=== PATIENT | female | born 1965 | race Caucasian/White ===

== ENCOUNTER → 2016-12-16 | Outpatient (CLI) | payer OTHER ==
--- NOTE | 2016-12-16 17:02 | MG ---
Examination: Bilateral screening mammogram. Clinical history: Routine screening. Technique: Digital CC and MLO views of both breasts were obtained. Implant displaced views of both b reasts were also obtained. Computer aided detection analysis was performed and used during the inter pretation. Comparison: 07/19/2014. Findings: The breasts are heterogeneously dense, reducing the sensitivity of mammography. Bilateral saline pro stheses are normal in appearance. Benign-appearing calcifications are noted in the breasts bilateral ly. Scattered densities are present in the right breast, which are partially obscured by surrounding fib roglandular tissue, but appear new when compared with the prior examination. Additional imaging eval uation is recommended, with spot compression magnification views in the CC and MLO projections, a la teral view of the right breast and a right breast ultrasound. No suspicious mass, area of architectural distortion or suspicious cluster of microcalcifications is noted in the left breast. Impression: 1. Densities in the right breast, as described above. BI-RADS category 0 (ZERO) - ASSESSMENT INCOMPLETE; ADDITIONAL IMAGING IS NEEDED. Recommend immediate recall for additional imaging evaluation, as described above. Diagnostic CAD was utilized and reviewed. * 0 (ZERO) - ASSESSMENT INCOMPLETE; ADDITIONAL IMAGING IS NEEDED. * 0C - ASSESSMENT INCOMPLETE, NEEDS ADDITIONAL IMAGING EVALUATION AND/OR PRIOR MAMMOGRAMS FOR COMPAR ALEAH. * 1/1 (ONE) - NEGATIVE. * 2/II (TWO) - BENIGN FINDINGS. * 3/III (THREE) - PROBABLY BENIGN FINDING; SHORT INTERVAL FOLLOW-UP SUGGESTED. * 4/IV (FOUR) - SUSPICIOUS ABNORMALITY; BIOPSY SHOULD BE CONSIDERED. * 5/V - HIGHLY SUSPICIOUS OF MALIGNANCY; BIOPSY SHOULD BE PERFORMED. * 6/IV - KNOWN BIOPSY PROVEN MALIGNANCY-APPROPRIATE ACTION SHOULD BE TAKEN. A NEGATIVE X-RAY REPORT SHOULD NOT DELAY BIOPSY IF A DOMINANT OR CLINICALLY SUSPICIOUS MASS IS PRESENT; 4 TO 8 PERCENT OF CANCERS ARE NOT IDENTIFIED BY X-RAY. A NEGATIVE REPORT MAY REINFORCE THE CLINICAL IMPRESSION. ADENOSIS AND DENSE BREASTS MAY OBSCURE AN UNDERLYING NEOPLASM. Reported By:
== END ==
LOC: RAD 14:47
PROVIDERS: ATTEND Nurse Practitioner
DX: Z12.31 Encounter for screening mammogram for malignant neoplasm of breast (principal)
CPT/HCPCS: 77067

== ENCOUNTER → 2017-01-01 | Outpatient (CLI) | payer OTHER ==
--- NOTE | 2017-01-01 15:14 | MG ---
HISTORY: Abnormal screening mammography with right breast nodules Right breast digital diagnostic mammography with CAD and right breast ultrasound. Comparison: Multiple priors dating back to July 08, 2011 FINDINGS: Mammogram: CC spot magnification and ML views of the right breast were obtained. Heterogeneously de nse fibroglandular tissue is seen to be present. No dominant suspicious architectural distortion, m ass or clustered microcalcifications can be observed to suggest malignancy. The previously describe d nodules become less prominent and assuming a similar appearance as compared to the more remote sanjay ors but which will be correlated with ultrasound to exclude an underlying suspicious occult lesion. Benign-appearing calcifications are noted. Ultrasound: Multiple grayscale and color Doppler images of the right breast were obtained from 9-6 o 'clock. There are numerous horizontally oriented smoothly marginated and well circumscribed predomin antly anechoic cyst with posterior acoustical enhancement and no internal Doppler flow all of which measure less than 1 cm with the largest lesion at 10 o'clock and which demonstrate a small amount of internal debris and septations but no suspicious peripheral solid nodular components. A background of fibrocystic changes are noted. No suspicious solid nodules are identified. IMPRESSION: NO RADIOGRAPHIC EVIDENCE OF MALIGNANCY. ACR CATEGORY 2 - benign findings. FOLLOW-UP EXAM 1 YEAR. Diagnostic CAD was utilized and reviewed. * 0 (ZERO) - ASSESSMENT INCOMPLETE; ADDITIONAL IMAGING IS NEEDED. * 1/1 (ONE) - NEGATIVE. * 2/II (TWO) - BENIGN FINDINGS. * 3/III (THREE) - PROBABLY BENIGN FINDING; SHORT INTERVAL FOLLOW-UP SUGGESTED. * 4/IV (FOUR) - SUSPICIOUS ABNORMALITY; BIOPSY SHOULD BE CONSIDERED. * 5/V (FIVE) - HIGHLY SUSPICIOUS OF MALIGNANCY; BIOPSY SHOULD BE PERFORMED. A NEGATIVE X-RAY REPORT SHOULD NOT DELAY BIOPSY IF A DOMINANT OR CLINICALLY SUSPICIOUS MASS IS PRESENT; 4 TO 8 PERCENT OF CANCERS ARE NOT IDENTIFIED BY X-RAY. A NEG ATIVE REPORT MAY REINFORCE THE CLINICAL IMPRESSION. ADENOSIS AND DENSE BREASTS MAY OBSCURE AN UNDER LYING NEOPLASM. Reported By:
--- NOTE | 2017-01-01 15:20 | US ---
HISTORY: Abnormal screening mammography with right breast nodules Right breast digital diagnostic mammography with CAD and right breast ultrasound. Comparison: Multiple priors dating back to July 08, 2011 FINDINGS: Mammogram: CC spot magnification and ML views of the right breast were obtained. Heterogeneously dense fibroglandular tissue is seen to be present. No dominant suspicious architectural distortion, mass or clustered microcalcifications can be observed to suggest malignancy. The previously described nodules become less prominent and assuming a similar appearance as compared to the more remote priors but which will be correlated with ultrasound to exclude an underlying suspicious occult lesion. Benign-appearing calcifications are noted. Ultrasound: Multiple grayscale and color Doppler images of the right breast were obtained from 9-6 o'clock. There are numerous horizontally oriented smoothly marginated and well circumscribed predominantly anechoic cyst with posterior acoustical enhancement and no internal Doppler flow all of which measure less than 1 cm with the largest lesion at 10 o'clock and which demonstrate a small amount of internal debris and septations but no suspicious peripheral solid nodular components. A background of fibrocystic changes are noted. No suspicious solid nodules are identified. IMPRESSION: NO RADIOGRAPHIC EVIDENCE OF MALIGNANCY. ACR CATEGORY 2 - benign findings. FOLLOW-UP EXAM 1 YEAR. Diagnostic CAD was utilized and reviewed. * 0 (ZERO) - ASSESSMENT INCOMPLETE; ADDITIONAL IMAGING IS NEEDED. * 1/1 (ONE) - NEGATIVE. * 2/II (TWO) - BENIGN FINDINGS. * 3/III (THREE) - PROBABLY BENIGN FINDING; SHORT INTERVAL FOLLOW-UP SUGGESTED. * 4/IV (FOUR) - SUSPICIOUS ABNORMALITY; BIOPSY SHOULD BE CONSIDERED. * 5/V (FIVE) - HIGHLY SUSPICIOUS OF MALIGNANCY; BIOPSY SHOULD BE PERFORMED. * 6/ (SIX) - KNOWN MALIGNANCY. A NEGATIVE X-RAY REPORT SHOULD NOT DELAY BIOPSY IF A DOMINANT OR CLINICALLY SUSPICIOUS MASS IS PRESENT; 4 TO 8 PERCENT OF CANCERS ARE NOT IDENTIFIED BY X-RAY. A NEG ATIVE REPORT MAY REINFORCE THE CLINICAL IMPRESSION. ADENOSIS AND DENSE BREASTS MAY OBSCURE AN UNDER LYING NEOPLASM. Reported By:
== END ==
LOC: RAD 13:05
PROVIDERS: ATTEND Nurse Practitioner
DX: N63 Unspecified lump in breast (principal)
CPT/HCPCS: 76642; 77065

== ENCOUNTER → 2017-12-22 | Outpatient (CLI) | payer SELFPAY ==
--- NOTE | 2017-12-22 12:51 | MG ---
HISTORY: SCREENING Comparison: 12/16/2016 FINDINGS: Bilateral CC and MLO projections of the right and left breast were obtained. Implant displacement vi ews were obtained as well. Heterogeneously dense fibroglandular tissue is seen to be present. Subpect oral implants are in place bilaterally. No significant architectural distortion, mass or clustered mi crocalcifications can be observed to suggest malignancy. No skin thickening or nipple retraction is appreciated. No pathological lymphadenopathy can be identified. Benign-appearing calcifications sca ttered throughout the right and left breasts are observed. IMPRESSION: NO RADIOGRAPHIC EVIDENCE OF MALIGNANCY. ACR CATEGORY 2 - benign findings. FOLLOW-UP EXAM 1 YEAR. Diagnostic CAD was utilized and reviewed. * 0 (ZERO) - ASSESSMENT INCOMPLETE; ADDITIONAL IMAGING IS NEEDED. * 1/1 (ONE) - NEGATIVE. * 2/II (TWO) - BENIGN FINDINGS. * 3/III (THREE) - PROBABLY BENIGN FINDING; SHORT INTERVAL FOLLOW-UP SUGGESTED. * 4/IV (FOUR) - SUSPICIOUS ABNORMALITY; BIOPSY SHOULD BE CONSIDERED. * 5/V - HIGHLY SUSPICIOUS OF MALIGNANCY; BIOPSY SHOULD BE PERFORMED. A NEGATIVE X-RAY REPORT SHOULD NOT DELAY BIOPSY IF A DOMINANT OR CLINICALLY SUSPICIOUS MASS IS PRESENT; 4 TO 8 PERCENT OF CANCERS ARE NOT IDENTIFIED BY X-RAY. A NEGA TIVE REPORT MAY REINFORCE THE CLINICAL IMPRESSION. ADENOSIS AND DENSE BREASTS MAY OBSCURE AN UNDERLY ING NEOPLASM. Reported By:
== END ==
LOC: RAD 10:14 → EDSTATUS 10:30
PROVIDERS: ATTEND Nurse Practitioner
DX: Z12.31 Encounter for screening mammogram for malignant neoplasm of breast (principal)
CPT/HCPCS: 77067